=== PATIENT | male | born 1990 | race Caucasian/White ===

== ENCOUNTER 2020-04-24 13:57 | Emergency (ER) | payer OTHER ==
[~2020-04-24] VITALS: Ht 198.1 cm; Wt 124.0 kg
[2020-04-24] MEDS ORDERED: HYDROcodone/APAP 5/325 TABLET ONE (14:28)
[2020-04-24] MEDS ORDERED: HYDROcodone/APAP 5/325 TABLET PO PRN (14:30)
--- NOTE | 2020-04-24 14:33 | NUR ---
PT IS A 29M WHO FELL YESTERDAY AM ON HIS ELBOW IN [facility]. HE WAS SEEN AND SPLINTED AT THE HOSPITAL THERE AND REFERRED TO THE [facility] HERE IN [place]. [facility] IS UNABLE TO SEE HIM UNTIL SUNDAY BECAUSE THIS IS WORK COMP RELATED SO HE CAME HERE FOR A SECOND OPINION AND PAIN CONTROL. AT BEDSIDE. CALL LIGHT WITHIN REACH.
--- NOTE | 2020-04-24 15:26 | NUR ---
PT RESTING COMFORTABLY WITH SPOUSE AT BEDSIDE. STATES HIS PAIN IS DOWN FROM AN 8 TO A 6. CALL LIGHT WITHIN REACH, VITALS UPDATED, NO FURTHER NEEDS AT THIS TIME.
[2020-04-24 16:14] VITALS: BP 133/94
--- NOTE | 2020-04-24 16:14 | NUR ---
Patient/Caregiver given discharge instructions and they have confirmed that they understand the instructions. Patient ambulatory with steady gait.
== END 2020-04-24 16:18 | disposition home or self-care (01) ==
LOC: ED 14:42
DX: S52.182A Other fracture of upper end of left radius, initial encounter for closed fracture (principal); S54.02XA Injury of ulnar nerve at forearm level, left arm, initial encounter; W01.0XXA Fall on same level from slipping, tripping and stumbling without subsequent striking against object, initial encounter; Y93.89 Activity, other specified; Y92.89 Other specified places as the place of occurrence of the external cause; Y99.0 Civilian activity done for income or pay
CPT/HCPCS: 29105; 29125; 99283